=== PATIENT | male | born 1955 | race Caucasian/White ===

== ENCOUNTER 2021-05-25 22:36 | Emergency (ER) | payer MEDICARE, BC, SELFPAY ==
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
[2021-05-25 22:53] VITALS: BP 154/84; PULSE 90; RESP 20; TEMP 36.8; O2SAT 98
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
[2021-05-25 23:16] LABS: Abs Immature Grans 0.08 10^3/uL (0.0-0.06); Absolute Basophil Count 0.08 10^3/uL (0.0-0.2); Absolute Monocyte Count 1.16 10^3/uL (0.1-0.8); Absolute Neutrophil Count 8.33 10^3/uL (1.2-6.7); Basophils % 0.7; Eosinophils % 2.3; HCT 43.8 % (40.0-50.0); HGB 15.1 g/dL (13.5-17.5); Immature Grans % 0.7; Lymphocytes % 16.8; MCH 30.9 pg (27.0-33.0); MCHC 34.5 % (32.0-36.0); MCV 89.8 fL (80-95); MPV 9.1 fL (8.0-11.0); Monocytes % 9.7; Neutrophils % 69.8; Nucleated RBC 0 %; Platelet Count 208 10^3/uL (130-400); RBC 4.88 10^6/uL (4.36-5.78); RDW 12.7 % (11.8-14.1); RDW-SD 41.8 fL; WBC 11.93 10^3/uL (4.4-10.8)
[2021-05-25 23:17] LABS: Absolute Eosinophil Count 0.27 10^3/uL (0.0-0.7)
[2021-05-25 23:30] LABS: ALT 62 U/L (16-63); AST 38 U/L (15-37); Albumin 4.2 g/dL (3.4-5.0); Alkaline Phosphatase 69 U/L (46-116); Anion Gap 9.7 mmol/L (3-11); BUN 17 mg/dL (7-18); CO2 26.3 mmol/L (21.0-32.0); CREATININE 0.9 mg/dL (0.70-1.30); Calcium 9.1 mg/dL (8.5-10.1); Chloride 103 mmol/L (98-107); Glucose 126 mg/dL (74-106); Lipase 89 U/L (73-393); Potassium 4.4 mmol/L (3.5-5.1); Sodium 139 mmol/L (136-145); Total Protein 8.4 g/dL (6.4-8.2)
[2021-05-25] MEDS: Omnipaque 350 MG/ML 100 ML BTL IJ (23:57)
[2021-05-25] MEDS: Normal Saline Flush 10 ML SYR IVP (23:58)
[2021-05-26] MEDS: Normal Saline 500 ML IV (00:13)
[2021-05-26 00:16] VITALS: BP 149/76; PULSE 67; RESP 18; O2SAT 100
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
[2021-05-26 00:38] LABS: Bilirubin Negative (Negative); Blood Negative (Negative); Clarity Clear (Clear); Glucose Negative (Negative); Ketones 15 mg/dL (Negative); Leukocyte Esterase Negative (Negative); Nitrite Negative (Negative); Specific Gravity 1.015 (1.005-1.025); Urobilinogen 0.2 EU/dL (Up TO 0.2); pH 5.5 (5-8)
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
[2021-05-26] MEDS: ACETAMINOPHEN 1,000 MG/100 ML BTL 400 MG IVPB (00:55)
== END 2021-05-26 01:23 | disposition home or self-care (01) ==
PROVIDERS: Emergency Provider Student in an Organized Health Care Education/Training Program
DX: S30.1XXA Contusion of abdominal wall, initial encounter (principal); M54.6 Pain in thoracic spine; V86.52XA Driver of snowmobile injured in nontraffic accident, initial encounter; R91.1 Solitary pulmonary nodule
CPT/HCPCS: 36415; 74177; 80053; 83690; 96361; 96365; 99285; 71260; 81003; 85025; 99284; J0131; J3490